=== PATIENT | male | born 1970 | race Caucasian/White ===

== ENCOUNTER 2022-04-10 13:45 | Day surgery (SDC) | payer OTHER, SELFPAY ==
[2022-04-07 12:34] VITALS: BMI 29.8
[2022-04-10] VITALS (9 sets, daily range): BP systolic 118–179; BP diastolic 81–125; PULSE 64–89; RESP 16–20; TEMP 36.4–37.1; O2SAT 92–97
[2022-04-10] MEDS: sodium chloride 0.9% 1,000 ML 30 ML IV (14:10)
--- NOTE | 2022-04-10 15:57 | ANES.PREANE2 ---
Pre-Anesthetic Assessment Height/Weight: Height 1.75 m Weight 91.626 kg Temp Pulse Resp BP Pulse Ox 97.6 F 70 16 179/121 97 04/10/22 13:57 04/10/22 13:57 04/10/22 13:57 04/10/22 14:11 04/10/22 13:57 Preop Diagnosis: umbilical hernia Operation Date: 04/10/22 15:10 Proposed Procedures p lap umblicial hernia repair w/ mesh and excision of subq mass of forehead [id number],R22.9,K42.96(Not Applicable) - Louie Holcomb DO s Excision Mass/Lesion/Cyst Upper Torso/He(Not Applicable) - Louie Holcomb DO Familial anesthetic complications: none Was Beta Carolyn taken within 24 hours: N/A Was Clonidine taken within 24 hours: N/A Last intake: Intake Last Liquid Date 04/10/22 Last Liquid Time 09:40 Last Solid Date 04/09/22 Last Solid Time 19:00 Social No alcohol and No tobacco Exam alert, oriented x 3, clear to auscultation bilaterally and regular rate & rhythm Airway Submandibular: within normal limits Cervical ROM: within normal limits Mallampati: Class II Dentition: full Anesthetic Plan ASA status: 1 Anesthesia: General Medications/Allergies Home Medications Medication Instructions Recorded Confirmed Last Taken Type No Known Home Medications 04/05/22 04/07/22 Unknown History Allergies Allergy/AdvReac Type Severity Reaction Status Date / Time No Known Allergies Allergy Verified 04/05/22 13:27 Current Medications Generic Name Dose Route Start Last Admin Trade Name Freq PRN Reason Stop Dose Admin Sodium Chloride 1,000 mls @ 30 mls/hr 04/10/22 14:00 04/10/22 14:10 Sodium Chloride 0.9% IV 04/11/22 13:59 30 mls/hr .Q24H MADDIE Administration PFSH Anesthesia Surgical History S/P excision of lipoma Family History Other Cancer Dementia Diabetes Hypertension Denies family history of CAD (coronary artery disease) Chronic kidney disease (CKD) Anesthesia complication Bleeding disorder Lung disease Stroke Social History Smoking and tobacco status: never smoked Second hand smoke exposure: No Alcohol intake: never Lives independently: Yes Household members: spouse and children Marital status: Data Anesthesia Cardiac Studies: No Data to Display
--- NOTE | 2022-04-10 16:03 | W.PM.OPSUD ---
Surgery/Procedure H&P Update DATE OF PROCEDURE: April 10, 2022 DATE H&P PERFORMED: 04/05/22 CHANGES TO PREVIOUS DOCUMENTATION: none PREOP DIAGNOSIS: umbilical hernia PLANNED PROCEDURE: Operation Date: 04/10/22 15:10 Proposed Procedures p lap umblicial hernia repair w/ mesh and excision of subq mass of forehead [id number],R22.9,K42.96(Not Applicable) - DO andrew Contreras Excision Mass/Lesion/Cyst Upper Torso/He(Not Applicable) - Louie Holcomb DO
[2022-04-10] MEDS: meperidine 50 mg/mL INJ 12.5 MG IVP (19:44)
[2022-04-10] MEDS: oxyCODONE 5 mg IR Tab/Cap 10 MG PO (20:24)
[2022-04-10] MEDS: ondansetron 2 mg/ML SDV 2 mL 4 MG IVP (20:34)
[2022-04-10] MEDS: metoclopramide 5 mg/mL SDV 2 mL 10 MG IVP (21:02)
--- NOTE | 2022-04-10 22:42 | PM.OP ---
Operative Report Date of procedure: April 10, 2022 Pre-op diagnosis: Preop Diagnosis umbilical hernia, subcutaneous mass of forehead Post-op diagnosis: same Procedure done: Laparoscopic repair of umbilical hernia with mesh and excision of subcutaneous mass of forehead Specimens removed/disposition: 1. hernia sac 2. Subcutaneous mass of forehead Surgeon: Dr. Louie Holcomb DO Estimated blood loss: 20 Complications: None apparent Brief History: This is a very pleasant 51-year-old gentleman who presents to my office with a 1 week history of bulge and pain in his umbilicus. Laparoscopic umbilical hernia repair with mesh was indicated. I also noticed a growth on his forehead, which was likely a recurrence of a lipoma he had excised 10 years ago. Excision of subcutaneous mass of forehead was indicated. The risks and benefits of both procedures were explained and documented. Procedure: Patient was wheeled into the operative room and placed on the OR table in a supine position. Abdomen was inspected prepped and draped in usual sterile fashion. Time-out was performed and all present were in agreement. A 15 blade scalp was used to make a 5 millimeter incision left upper quadrant. A Veress needle was placed into the incision and intra-abdominal insufflation was brought to 15 millimeters of mercury. A 2nd 5 millimeter trocar was placed into the left lower quadrant. The energy device was then used to cut out the hernia sac. An 11.4 centimeter mesh was placed into the abdomen and brought up through the umbilicus using an 0 Vicryl suture. The mesh was then tacked in place in a double crown fashion. The hernia sac was then removed from the abdomen via the left lower quadrant. The 0 Vicryl suture was removed from the mesh. Incisions were closed with 4 O Vicryl in a subcuticular interrupted fashion. Skin glue was applied. A dressing that included cotton balls and a Tegaderm was placed over the umbilicus. Patient tolerated the procedure well. Attention was then brought to the patient's forehead. The forehead was inspected prepped and draped in the usual sterile fashion. A 1.5 cm thin ellipse of skin was created with a scalpel over the subcutaneous mass. Dissection was carried down with iris scissors and electrocautery to a yellow fatty mass, most consistent with lipoma. This mass was not well defined and not surrounded by a sac. The mass was removed in its entirety and sent to pathology. Hemostasis was achieved with electrocautery. Dermis was approximated with 4-0 Vicryl suture in an interrupted fashion. Dermabond was applied. Patient tolerated the procedure well.
--- NOTE | 2022-04-11 10:23 | ANE.PACU2 ---
Inpatient post-anesthesia follow up: Airway intact: Yes Vital signs: Temperature 98.7 F Pulse Rate 69 Respiratory Rate 18 Blood Pressure 142/81 Pulse Oximetry 93 Oxygen Delivery Me thod Room Air Oxygen Flow Rate Fraction of Inspir ed Oxygen Hydration adequate: Yes Nausea and vomiting: No Pain level: 2 Mental status: Baseline
== END 2022-04-10 21:32 | disposition home or self-care (01) ==
PROVIDERS: Visit Provider Surgery
PROC: 0WQF4ZZ Repair Abdominal Wall, Percutaneous Endoscopic Approach (ICD-10-PCS; CPT 11442; principal; 2022-04-10 15:00)
PROC: (CPT 11442; 2022-04-10 15:00)
DX: K42.9 Umbilical hernia without obstruction or gangrene (principal); D17.0 Benign lipomatous neoplasm of skin and subcutaneous tissue of head, face and neck
CPT/HCPCS: 11442; 49652; 88302; 88307; C1781; J1100; J2175; J2405; J2704; J2710; J2765; J3010; J3490; J7030

== ENCOUNTER 2024-07-28 06:01 | Day surgery (SDC) | payer OTHER, SELFPAY ==
[2024-07-28 06:12] VITALS: BP 179/113; PULSE 75; RESP 18; TEMP 36.4; O2SAT 96; BMI 28.3
[2024-07-28] MEDS: sodium chloride 0.9% 1,000 ML 30 ML IV (06:20)
--- NOTE | 2024-07-28 06:50 | W.PM.OPSUD ---
Surgery/Procedure H&P Update DATE OF PROCEDURE: July 28, 2024 DATE H&P PERFORMED: 07/21/24 H&P UPDATE INFORMATION: I have reviewed H&P completed within last 30 days, I have examined patient prior to procedure and No changes to prior documentation PLANNED PROCEDURE: Operation Date: 07/28/24 07:00 Proposed Procedures p Colonoscopy - 10046, G0121, Z12.11(Not Applicable) - Louie Holcomb, DO
--- NOTE | 2024-07-28 06:51 | ANES.PREANE2 ---
Pre-Anesthetic Assessment Height/Weight: Height 1.78 m Weight 89.358 kg Temp Pulse Resp BP Pulse Ox O2 Del Method 97.5 F L 75 18 179/113 96 Room Air 07/28/24 06:12 07/28/24 06:12 07/28/24 06:12 07/28/24 06:12 07/28/24 06:12 07/28/24 06:12 Preop Diagnosis: Screening Operation Date: 07/28/24 07:00 Proposed Procedures p Colonoscopy - 13716, G0121, Z12.11(Not Applicable) - Louie Holcomb DO Was Beta Carolyn taken within 24 hours: Yes Last intake: Intake Last Liquid Date 07/27/24 Last Liquid Time 22:00 Last Solid Date 07/26/24 Last Solid Time 09:00 Social No alcohol and No tobacco Exam alert, oriented x 3, clear to auscultation bilaterally and regular rate & rhythm Airway Submandibular: within normal limits Cervical ROM: within normal limits Mallampati: Class II Dentition: full History/ROS No significant history except as noted and No significant complaints Pulmonary None reported CV/HEM Hypertension None reported Hepatic None reported GI None reported Metabolic None reported Musc/skel None reported Neuropsych None reported Anesthetic Plan ASA status: 2 Anesthesia: Anesthesia Evaluation and MAC Risk of > 500 ml blood loss (7ml/kg in children): No Medications/Allergies Home Medications Medication Instructions Recorded Confirmed Last Taken Type No Known Home Medications 04/05/22 07/28/24 Unknown History Allergies Allergy/AdvReac Type Severity Reaction Status Date / Time No Known Allergies Allergy Verified 07/28/24 06:10 Current Medications Generic Name Dose Route Start Last Admin Trade Name Siria PRN Reason Stop Dose Admin Sodium Chloride 1,000 mls @ 30 mls/hr 07/28/24 06:15 07/28/24 06:20 Sodium Chloride 0.9% IV 07/29/24 06:14 30 mls/hr .Q24H MADDIE Administration PFSH Anesthesia Surgical History Hx of umbilical hernia repair 04/10/22 lap umblicial hernia repair w/ mesh and excision of subq mass of forehead s Excision Mass/Lesion/Cyst Upper Torso- Dr. Holcomb S/P excision of lipoma Family History Other Cancer Dementia Diabetes Hypertension Denies family history of CAD (coronary artery disease) Chronic kidney disease (CKD) Anesthesia complication Bleeding disorder Lung disease Stroke Social History Smoking and tobacco/nicotine status: never used tobacco/nicotine Second hand smoke exposure: No Alcohol intake: never Substance/Drug Use: never Lives independently: Yes Household members: spouse and children Marital status: Data Anesthesia Cardiac Studies: No Data to Display
[2024-07-28 07:13] VITALS: BP 128/88; PULSE 64; RESP 16; TEMP 36.2; O2SAT 95
[2024-07-28 07:21] VITALS: BP 127/95; PULSE 58; RESP 16; O2SAT 96
--- NOTE | 2024-07-28 07:41 | ANE.PACU2 ---
Inpatient post-anesthesia follow up: Airway intact: Yes Vital signs: Temperature 97.1 F Pulse Rate 58 Respiratory Rate 16 Blood Pressure 127/95 Pulse Oximetry 96 Oxygen Delivery Me thod Room Air Oxygen Flow Rate Fraction of Inspir ed Oxygen Hydration adequate: Yes Nausea and vomiting: No Pain level: 1 Mental status: Baseline
== END 2024-07-28 07:41 | disposition home or self-care (01) ==
PROVIDERS: PCP Nurse Practitioner Family; Visit Provider Surgery
PROC: 0DJD8ZZ Inspection of Lower Intestinal Tract, Via Natural or Artificial Opening Endoscopic (ICD-10-PCS; CPT 45378; principal; 2024-07-28 07:00)
DX: Z12.11 Encounter for screening for malignant neoplasm of colon (principal); K64.8 Other hemorrhoids; I10 Essential (primary) hypertension
CPT/HCPCS: 45378; J2704; J3490; J7030